=== PATIENT | male | born 1955 | race Hispanic/Latino ===

== ENCOUNTER 2016-06-08 16:43 | Emergency (ER) | payer MEDICARE ==
[2016-06-08 17:24] LABS: Urine Drugs of Abuse Note Disclamer
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
[2016-06-08 17:41] LABS: Bilirubin,Urine NEG (Negative); Blood,Urine NEG (Negative); Ketones,Urine TR mg/dL (Negative); Leukocyte Esterase,Urine NEG (Negative); Mucus,Urine FEW /HPF; Nitrite,Urine NEG (Negative); Protein,Urine <15 mg/dL mg/dL (Negative)
[2016-06-08 17:51] LABS: Eosinophils % (Auto) 2.7 % (0.0-4.3); Hematocrit 45.9 % (35.5-45.6); Hemoglobin 15.6 gm/dl (11.8-15.2); Mean Corpuscular HGB Conc 34 % (32-34); Mean Corpuscular Hemoglobin 35 pg (28-32); Mean Corpuscular Volume 104 fl (84-94); Platelet Count 131 K/mm3 (140-440); Red Blood Count 4.44 M/mm3 (3.65-5.03); White Blood Count 6.5 K/mm3 (4.5-11.0)
[2016-06-08 18:08] LABS: Anion Gap 18 mmol/L; BUN/Creatinine Ratio 17.14; Blood Urea Nitrogen 12 mg/dL (9-20); Calcium 9.6 mg/dL (8.4-10.2); Carbon Dioxide 28 mmol/L (22-30); Chloride 97.7 mmol/L (98-107); Glucose 99 mg/dL (75-100); Potassium 4.3 mmol/L (3.6-5.0); Sodium 139 mmol/L (137-145)
[2016-06-09 11:21] VITALS: BP 128/74
== END 2016-06-09 11:27 | disposition home or self-care (01) ==
LOC: EEVIPCON 16:43 → ED 16:43
DX: F20.9 Schizophrenia, unspecified (principal); F17.200 Nicotine dependence, unspecified, uncomplicated
CPT/HCPCS: 36415; 80048; 80307; 81001; 85025; 99284; G0480; 80320

== ENCOUNTER 2016-10-01 21:05 | Emergency (ER) | payer MEDICARE ==
[2016-10-01] MEDS ORDERED: HALDOL IM ONE ×2 (21:32→22:33)
--- NOTE | 2016-10-01 21:32 | Emergency Department Report ---
ED Alcohol HPI - General Chief Complaint: Altered Mental Status Stated Complaint: ETOH Time Seen by Provider: 10/01/16 21:25 Source: EMS (verbal report received from EMS. ems notes not available at time of chart dictation), RN notes reviewed, old records reviewed Mode of arrival: Stretcher Limitations: Altered Mental Status, Physical Limitation - History of Present Illness Initial Comments: This is a male, aged approximately 61, whom I have evaluated in the past. The patient has a known history of alcohol abuse. He is brought to the hospital by EMS found down on the road, the uncertain mechanism, for uncertain duration of time. EMS reports that patient smells of alcohol, that the patient had an empty bottle of isopropyl alcohol. No further history is available at this time. MD Complaint: alcohol intoxication, alcohol withdrawal Last Drink: unknown Chronic Alcohol Use: Yes Previous Visits for Alcohol Intoxication?: Yes Associated Symptoms: other (as per history of present illness) Treatments Prior to Arrival: other (as per history of present illness) - Related Data Home Medications Medication Instructions Recorded Confirmed Last Taken No Known Home Medications [No 10/02/13 10/02/16 Unknown Reported Home Medications] Allergies Allergy/AdvReac Type Severity Reaction Status Date / Time No Known Allergies Allergy Verified 12/18/14 20:49 ED Review of Systems ROS: Stated complaint: ETOH Other details as noted in HPI Comment: Unobtainable due to pts medical conditions ED Past Medical Hx - Past Medical History Hx Psychiatric Treatment: Yes (ETOH, schziophrenia) - Surgical History Additional Surgical History: hip - Social History Smoking Status: Current Every Day Smoker Substance Use Type: Alcohol, Prescribed - Medications Home Medications: Home Medications Medication Instructions Recorded Confirmed Last Taken Type No Known Home Medications [No 10/02/13 10/02/16 Unknown History Reported Home Medications] ED Physical Exam - General Limitations: Altered Mental Status, Physical Limitation General appearance: appears intoxicated - Head Head exam: Present: atraumatic, normocephalic - Eye Eye exam: Present: normal appearance - ENT ENT exam: Present: mucous membranes dry - Neck Neck exam: Present: normal inspection, full ROM. Absent: tenderness, meningismus - Respiratory Respiratory exam: Present: rhonchi (faint rhonchi noted in the left hemithorax) . Absent: respiratory distress, chest wall tenderness, accessory muscle use, decreased breath sounds, prolonged expiratory - Cardiovascular Cardiovascular Exam: Present: normal rhythm, tachycardia, normal heart sounds. Absent: systolic murmur, diastolic murmur, rubs, gallop - GI/Abdominal GI/Abdominal exam: Present: soft, normal bowel sounds. Absent: distended, tenderness, guarding, rebound, rigid, pulsatile mass - Rectal Rectal exam: Present: deferred - exam: Present: normal inspection External exam: Present: normal external exam - Extremities Exam Extremities exam: Present: normal inspection - Back Exam Back exam: Present: normal inspection, full ROM. Absent: tenderness, CVA tenderness (R), CVA tenderness (L), muscle spasm, paraspinal tenderness, vertebral tenderness - Neurological Exam Neurological exam: Present: altered, other (patient is making nonsensical sounds. He is moving 4 extremities spontaneously.) - Psychiatric Psychiatric exam: Present: normal affect, normal mood - Skin Skin exam: Present: warm, dry, intact, normal color. Absent: rash ED Course Vital Signs 10/01/16 10/01/16 10/01/16 21:27 21:36 21:40 Temperature 97.3 F L Pulse Rate 109 H 100 H Respiratory 14 13 Rate Blood Pressure 156/80 103/66 Blood Pressure 156/80 [Left] O2 Sat by Pulse 92 91 92 Oximetry 10/01/16 10/01/16 10/01/16 21:45 21:50 22:00 Temperature Pulse Rate 97 H Respiratory 10 L 16 Rate Blood Pressure 107/70 107/70 Blood Pressure 103/66 [Left] O2 Sat by Pulse 92 92 97 Oximetry 10/01/16 10/01/16 10/01/16 22:10 22:20 22:42 Temperature Pulse Rate 98 H Respiratory 11 L 17 Rate Blood Pressure 107/70 131/91 115/78 Blood Pressure [Left] O2 Sat by Pulse 98 97 Oximetry 10/01/16 10/01/16 10/01/16 22:50 22:53 23:00 Temperature Pulse Rate 99 H 99 H 105 H Respiratory 17 15 17 Rate Blood Pressure 92/51 92/51 Blood Pressure 115/75 [Left] O2 Sat by Pulse 95 96 97 Oximetry 10/01/16 10/01/16 10/01/16 23:10 23:20 23:25 Temperature Pulse Rate 106 H 96 H Respiratory 22 19 Rate Blood Pressure 92/51 135/78 Blood Pressure [Left] O2 Sat by Pulse 95 97 97 Oximetry 10/01/16 10/01/16 10/01/16 23:30 23:40 23:50 Temperature Pulse Rate 96 H 100 H 102 H Respiratory 14 10 L 19 Rate Blood Pressure 135/98 135/98 114/74 Blood Pressure [Left] O2 Sat by Pulse 95 97 97 Oximetry 10/01/16 10/02/16 10/02/16 23:58 00:00 00:10 Temperature Pulse Rate 98 H 95 H 95 H Respiratory 13 12 16 Rate Blood Pressure 114/74 134/84 134/84 Blood Pressure [Left] O2 Sat by Pulse 96 94 97 Oximetry 10/02/16 10/02/16 10/02/16 00:20 00:30 00:35 Temperature Pulse Rate 100 H 103 H 102 H Respiratory 20 19 18 Rate Blood Pressure 132/92 146/95 Blood Pressure 132/92 [Left] O2 Sat by Pulse 97 95 Oximetry 10/02/16 10/02/16 10/02/16 00:40 00:50 01:00 Temperature Pulse Rate 103 H 95 H 105 H Respiratory 18 13 21 Rate Blood Pressure 146/95 146/94 151/88 Blood Pressure [Left] O2 Sat by Pulse 97 97 96 Oximetry 10/02/16 10/02/16 10/02/16 01:10 01:20 01:30 Temperature Pulse Rate 97 H 96 H 96 H Respiratory 18 14 14 Rate Blood Pressure 151/88 151/88 134/84 Blood Pressure [Left] O2 Sat by Pulse 97 97 94 Oximetry 10/02/16 10/02/16 10/02/16 01:40 01:50 02:00 Temperature Pulse Rate 99 H 107 H 101 H Respiratory 14 17 11 L Rate Blood Pressure 134/84 124/80 134/87 Blood Pressure [Left] O2 Sat by Pulse 98 97 100 Oximetry 10/02/16 10/02/16 10/02/16 02:10 02:20 02:30 Temperature Pulse Rate 100 H 101 H 100 H Respiratory 22 22 13 Rate Blood Pressure 134/87 125/82 123/73 Blood Pressure [Left] O2 Sat by Pulse 93 91 96 Oximetry 10/02/16 10/02/16 10/02/16 02:40 02:50 03:00 Temperature Pulse Rate 101 H 95 H 94 H Respiratory 16 14 16 Rate Blood Pressure 125/82 125/81 133/84 Blood Pressure [Left] O2 Sat by Pulse 90 89 87 Oximetry 10/02/16 10/02/16 10/02/16 03:10 03:20 03:30 Temperature Pulse Rate 97 H 99 H 99 H Respiratory 13 10 L 15 Rate Blood Pressure 133/84 125/80 124/86 Blood Pressure [Left] O2 Sat by Pulse 90 91 91 Oximetry 10/02/16 10/02/16 10/02/16 03:40 03:50 04:00 Temperature Pulse Rate 101 H 100 H 96 H Respiratory 12 14 14 Rate Blood Pressure 124/86 129/76 127/83 Blood Pressure [Left] O2 Sat by Pulse 89 89 91 Oximetry 10/02/16 10/02/16 10/02/16 04:10 04:20 04:30 Temperature Pulse Rate 102 H 100 H 98 H Respiratory 13 15 13 Rate Blood Pressure 124/86 135/73 125/76 Blood Pressure [Left] O2 Sat by Pulse 93 92 92 Oximetry 10/02/16 10/02/16 10/02/16 04:40 04:50 05:03 Temperature Pulse Rate 96 H 105 H 100 H Respiratory 16 12 Rate Blood Pressure 125/76 125/76 Blood Pressure [Left] O2 Sat by Pulse 90 94 Oximetry - Reevaluation(s) Reevaluation #1: 10/01/16 21:43 Differential diagnosis: Intracranial injury, cervical spine injury, alcohol intoxication (ethanol versus methanol versus isopropyl versus other), electrolyte derangement, dehydration,, aspiration pneumonia versus pneumonitis Assessment and plan: 61-year-old male who is intoxicated, found down, with a bottle of isopropyl alcohol. Uncertain if this is recreational or suicidal in nature. The patient requires 1013. We will obtain CT scan of the brain and cervical spine. Cervical collar is ordered. Because the patient is intoxicated , he is a danger to himself and other patients, he is not responding to verbal de-escalation techniques, or show of force. Therefore, for his safety and for staff safety, he required medication with Haldol, and soft restraints. Hospital policies for monitoring have been followed. The case is discussed with Saida at the [facility], who recommends baseline laboratory studies, EKG, and call back once the patient's laboratory studies have resulted. Reevaluation #2: 10/02/16 00:39 Laboratory studies reviewed. Ethanol level is elevated. No anion gap is noted. CT scan of the brain and cervical spine are negative. X-ray of the chest is negative. Lactic acid is normal. Case is rediscussed with the [facility], they recommend symptomatic and supportive care, no specific antidote or other intervention at this time. Serum osmolality is most likely secondary to alcohol. Reevaluation #3: 10/02/16 05:00 position still intoxicated. Repeat blood alcohol level was drawn. CT scan reads are appreciated, clinically don't think the patient has a dislocated jaw. Reevaluation #4: 10/02/16 05:51 No medical contraindication to psychiatric admission/evaluation/consultation at this time. Crisis is paged. ED Medical Decision Making - Lab Data Result diagrams: 10/01/16 21:19 10/01/16 21:19 Vital Signs 10/01/16 21:27 Temperature 97.3 F L Pulse Rate 109 H Respiratory 14 Rate Blood Pressure 156/80 Blood Pressure 156/80 [Left] O2 Sat by Pulse 92 Oximetry - EKG Data -: EKG Interpreted by Me EKG shows normal: sinus rhythm, axis, intervals, QRS complexes Rate: normal - Radiology Data Radiology results: report reviewed, image reviewed interpreted by me: X-ray of the chest is hyperinflated, no acute disease, chronic lung markings are noted. Noncontrast CT scan of the brain and cervical spine are negative Critical care attestation.: If time is entered above; I have spent that time in minutes in the direct care of this critically ill patient, excluding procedure time. ED Disposition Clinical Impression: Alcohol dependence Disposition: [id number]/TX-[id number] PSY HOSP/PSY UNIT Is pt being admited?: No Does the pt Need Aspirin: No Condition: Stable Referrals: PRIMARY CARE, [Primary Care Provider] - 3-5 Days
[2016-10-01] MEDS ORDERED: HALDOL ONE (21:33)
[2016-10-01] MEDS ORDERED: GEODON IM ONE (22:14)
[2016-10-01 22:18] LABS: Hematocrit 48.6 % (35.5-45.6); Hemoglobin 16.5 gm/dl (11.8-15.2); Mean Corpuscular HGB Conc 34 % (32-34); Mean Corpuscular Hemoglobin 36 pg (28-32); Mean Corpuscular Volume 107 fl (84-94); Red Blood Count 4.53 M/mm3 (3.65-5.03); Red Cell Distribution Width 14.3 % (13.2-15.2); White Blood Count 7.5 K/mm3 (4.5-11.0)
[2016-10-01 22:19] LABS: Platelet Count 136 K/mm3 (140-440)
[2016-10-01 22:41] LABS: Urine Drugs of Abuse Note Disclamer
[2016-10-01 22:41] LABS: BUN/Creatinine Ratio 18.33; Blood Urea Nitrogen 11 mg/dL (9-20); Calcium 8.9 mg/dL (8.4-10.2); Carbon Dioxide 27 mmol/L (22-30); Glucose 119 mg/dL (75-100)
[2016-10-01 22:42] LABS: Anion Gap 20 mmol/L; Chloride 95.2 mmol/L (98-107); Potassium 4.7 mmol/L (3.6-5.0); Sodium 137 mmol/L (137-145)
[2016-10-01 22:53] LABS: Bilirubin,Urine NEG (Negative); Blood,Urine NEG (Negative); Ketones,Urine NEG (Negative); Leukocyte Esterase,Urine NEG (Negative); Nitrite,Urine NEG (Negative); Protein,Urine <15 mg/dL mg/dL (Negative); Urobilinogen,Urine < 2.0 mg/dL (<2.0)
--- NOTE | 2016-10-01 23:04 | Cat Scan Report ---
FINAL REPORT EXAM: CT CERVICAL SPINE WO CON HISTORY: unwitnessed fall TECHNIQUE: Spiral CT scanning of the cervical spine, with axial images and multiplanar reformations. PRIORS: None. FINDINGS: Mild levoconvex curvature may be positional versus soft tissue spasm. Multilevel degenerative disc disease and spondylosis. Right mandibular condyle perched on articular eminence. No acute compression deformity or gross malalignment of cervical vertebral bodies. No acute fracture identified. No acute, osseous central spinal canal encroachment. Paraspinal soft tissues grossly unremarkable. Diffuse emphysematous change in the visualized upper lungs. IMPRESSION: 1. No acute compression deformity or apparent fracture in the cervical spine. 2. Degenerative spondylosis. 3. Anterior subluxation or dislocation of right TMJ. Correlate clinically.
--- NOTE | 2016-10-01 23:09 | Cat Scan Report ---
FINAL REPORT EXAM: CT HEAD/BRAIN WO CON HISTORY: unwitnessed fall TECHNIQUE: Noncontrast CT axial images of the brain. PRIORS: 12 October 2015. FINDINGS: No parenchymal mass, mass effect, hemorrhage, midline shift or hydrocephalus. No evidence of acute cortical infarct. No abnormal, extra-axial fluid or air collection. Very mild, patchy low density in the periventricular and subcortical white matter is nonspecific, but may relate to chronic small vessel ischemic change. Osseous calvarium grossly intact. Right mandibular condyle located anterior to the mandibular fossa. IMPRESSION: 1. No acute intracranial findings. 2. Anterior subluxation or dislocation of right TMJ.
[2016-10-02] MEDS ORDERED: VITAMIN B-1 100 MG, FOLVITE 1 MG, INFUVITE 10 ML in NACL 0.9% 1000 ML 1,000 ML IV ONE (00:39)
[2016-10-02] MEDS ORDERED: ATIVAN IM PRN (05:52)
--- NOTE | 2016-10-02 09:53 | XRay Report ---
AP CHEST: HISTORY: Cough, congestion The lungs are mildly hyperinflated which is unchanged since 12/23/14. No evidence for pneumonia, pleural effusion or pneumothorax. Heart size is within normal limits. IMPRESSION: Hyperinflated lungs suggesting mild emphysema. No acute process.
[2016-10-02 13:09] LABS: Anion Gap 16 mmol/L; BUN/Creatinine Ratio 18.33; Blood Urea Nitrogen 11 mg/dL (9-20); Calcium 9.3 mg/dL (8.4-10.2); Carbon Dioxide 30 mmol/L (22-30); Chloride 97.6 mmol/L (98-107); Creatine Kinase 1177 units/L (55-170); Glucose 115 mg/dL (75-100); Potassium 4.8 mmol/L (3.6-5.0); Sodium 139 mmol/L (137-145)
--- NOTE | 2016-10-02 13:12 | Consultation ---
History of Present Illness - Reason for Consult Consult date: 10/02/16 Reason for consult: EtOH intoxication Medications and Allergies Allergies Allergy/AdvReac Type Severity Reaction Status Date / Time No Known Allergies Allergy Verified 12/18/14 20:49 Home Medications Medication Instructions Recorded Confirmed Last Taken Type No Known Home Medications [No 10/02/13 10/02/16 Unknown History Reported Home Medications] Active Meds: Active Medications Lorazepam (Ativan) 2 mg IM Q4HR PRN PRN Reason: Agitation Mental Status Exam - Vital signs Last Vital Signs Temp 97.3 F L 10/01/16 21:27 Pulse 102 H 10/02/16 06:10 Resp 15 10/02/16 06:10 BP 125/76 10/02/16 06:10 Pulse Ox 94 10/02/16 06:00 Results Result Diagrams: 10/01/16 21:19 10/01/16 21:19 Abnormal lab results 10/01/16 10/01/16 10/01/16 Range/Units 21:19 21:19 21:19 Hgb (11.8-15.2) gm/dl Hct (35.5-45.6) % MCV (84-94) fl MCH (28-32) pg Plt Count (140-440) K/mm3 Chloride 95.2 L (98-107) mmol/L Creatinine 0.6 L (0.8-1.5) mg/dL Glucose 119 H (75-100) mg/dL Ur Specific Blodgett (1.003-1.030) Salicylates < 0.3 L (2.8-20.0) mg/dL Plasma/Serum Alcohol 0.44 H (0-0.07) gm% 10/01/16 10/01/16 10/02/16 Range/Units 21:19 22:33 04:59 Hgb 16.5 H (11.8-15.2) gm/dl Hct 48.6 H (35.5-45.6) % MCV 107 H (84-94) fl MCH 36 H (28-32) pg Plt Count 136 L (140-440) K/mm3 Chloride (98-107) mmol/L Creatinine (0.8-1.5) mg/dL Glucose (75-100) mg/dL Ur Specific Bl[place]gett 1.002 L (1.003-1.030) Salicylates (2.8-20.0) mg/dL Plasma/Serum Alcohol 0.24 H (0-0.07) gm% All other labs normal. Assessment and Plan Assessment and plan: CHIEF COMPLAINT IN PATIENTS WORDS: HISTORY OF PRESENT ILLNESS REQUIRING ADMISSION TO INPATIENT LEVEL OF CARE: (Describe the onset of Illness, Intensity of Symptoms, and Circumstances Leading to Admission) This is a 61 year-old undomiciled male who reports a formal PPH alcohol abuse now presenting due to recent intoxication on some form of alcohol. Per review of vitals patient's sons are mostly stable with some periodic tachycardia noted. Initial blood alcohol level was 0.44 and last alcohol level this morning was 0.24. On clinical examination, patient was somewhat uncooperative and a poor historian. Patient did note that he has daily alcohol use but only noted several beers a day. Patient notes that he is on disability and currently homeless. Patient drinks alcohol daily and has previously gone several days and up to a week without alcohol consumption and no adverse sequelae consistent with DT. Patient does note that he starts getting cravings to drink alcohol when he is abstinent over 48 hours. PSYCHIATRIC REVIEW OF SYSTEMS: Substance: The alcohol use daily Depression: Low sad mood Sharon: denies labile moods, no flight of ideas, not impulsive Psychosis: no AVH. No paranoia/grandiosity/erotomania Anxiety/ OCD/ PTSD: denies somatic symptoms, flashbacks, nightmares, avoidance, panic attacks Suicidality: denies SI Other Self-Injurious Behavior: none currently, no SIB noted recently Violent/ Aggressive Behavior: none noted CURRENT MEDICATIONS: ( Psychiatric and Non-psychiatric ) None ALLERGIES: NKDA PAST PSYCHIATRIC HISTORY: ( Prior Treatment, Precipitating Factors, Diagnosis, and Course of Treatment ) Inpatient: None noted Outpatient: None noted Prior Suicide Attempts: denies Prior Self-Injurious Behaviors: denies PAST PSYCHIATRIC MEDICATION TRIALS: Denies MEDICAL HISTORY: (Chronic and Acute Illnesses, Current Medical Treatment, Recent Hospitalizations) Denies HISTORY OF TRAUMA/ABUSE: Patient denies on clinical examination DRUG / ALCOHOL ABUSE HISTORY: As above Detoxification / Withdrawal: Mild elevation in heart rate SOCIAL HISTORY: (Educational Level, Employment, Support System, Interpersonal Relationships) Poor social supports, chronic alcohol use, disrupted interpersonal relationships , homelessness FAMILY HISTORY: Psychiatric/Substance Abuse MENTAL STATUS EXAM: General Appearance: casually dressed, in acute distress Sensorium/Consciousness: alert and responding to external stimuli Eye Contact: limited Attitude / Behavior: cooperative, but guarded Psychomotor & Musculoskeletal Activity: WNL Mood: Sad Affect: constricted Speech / Language: normal Thought Processes: organized, logical, linear Thought Content: no SI, no HI Perception: no AVH Orientation: person, place, time and situation Judgment What would you do if you smelled smoke in a crowded movie theater?: poor/impulsive Insight: poor Intelligence Vocabulary, general fund of knowledge, educational level : Average Capacity of ADLs: Independent STRENGTHS: Motivated for treatment PSYCHOSOCIAL AND ENVIRONMENTAL STRESSORS: Chronic alcohol use, poor social supports ADMITTING DIAGNOSES Psychiatric: Alcohol abuse versus dependence Evidence for the following: Medical: n/a INITIAL PLAN OF CARE AND TREATMENT GOALS: Continue supportive care and observation until patient's BAL normalizes Refer patient to rehabilitation program when patient's BAL has normalized recommend naltrexone 50 mg daily and Antabuse 250 mg daily, but they are not on formulary and patient will need to obtain them as an outpatient Patient was informed about the risks and benefits of treatment
[2016-10-02 19:30] VITALS: BP 131/85
[2016-10-02 22:56] LABS: Bilirubin,Urine NEG (Negative); Blood,Urine SM (Negative); Ketones,Urine TR mg/dL (Negative); Leukocyte Esterase,Urine TR (Negative); Mucus,Urine FEW /HPF; Nitrite,Urine NEG (Negative)
--- NOTE | 2016-10-02 23:59 | Event Note ---
Date: 10/02/16 The patient is reexamined by me. He is not homicidal. He is not suicidal. He is alert and oriented 3. He has a GCS of 15, with an NIH score of 0. He is clinically sober at this time. His creatinine kinase has decreased appropriately, and he clinically does not have a jaw dislocation. Given this, I don't believe the patient requires 1013, and I discontinued it. He is seen in consultation with Mr. Eduardo Orta of the crisis team, who independently agrees. The patient is not especially motivated to pursue detox, therefore I will not prescribe Antabuse or naltrexone. He does have poor dentition, he will be started on chlorhexidine, when necessary Librium, and instructed to follow up with outpatient mental health, outpatient dentist. I have also rediscussed the case with the [place] [facility], and discussed the case with [facility]. The [facility] independently agrees with the patient is suitable for discharge at this time, and they have no further recommendations. The patient is counseled to discontinue alcohol consumption. Vital Signs 10/01/16 10/01/16 10/01/16 21:27 21:36 21:40 Temperature 97.3 F L Pulse Rate 109 H 100 H Respiratory 14 13 Rate Blood Pressure 156/80 103/66 Blood Pressure 156/80 [Left] O2 Sat by Pulse 92 91 92 Oximetry 10/01/16 10/01/16 10/01/16 21:45 21:50 22:00 Temperature Pulse Rate 97 H Respiratory 10 L 16 Rate Blood Pressure 107/70 107/70 Blood Pressure 103/66 [Left] O2 Sat by Pulse 92 92 97 Oximetry 10/01/16 10/01/16 10/01/16 22:10 22:20 22:42 Temperature Pulse Rate 98 H Respiratory 11 L 17 Rate Blood Pressure 107/70 131/91 115/78 Blood Pressure [Left] O2 Sat by Pulse 98 97 Oximetry 10/01/16 10/01/16 10/01/16 22:50 22:53 23:00 Temperature Pulse Rate 99 H 99 H 105 H Respiratory 17 15 17 Rate Blood Pressure 92/51 92/51 Blood Pressure 115/75 [Left] O2 Sat by Pulse 95 96 97 Oximetry 10/01/16 10/01/16 10/01/16 23:10 23:20 23:25 Temperature Pulse Rate 106 H 96 H Respiratory 22 19 Rate Blood Pressure 92/51 135/78 Blood Pressure [Left] O2 Sat by Pulse 95 97 97 Oximetry 10/01/16 10/01/16 10/01/16 23:30 23:40 23:50 Temperature Pulse Rate 96 H 100 H 102 H Respiratory 14 10 L 19 Rate Blood Pressure 135/98 135/98 114/74 Blood Pressure [Left] O2 Sat by Pulse 95 97 97 Oximetry 10/01/16 10/02/16 10/02/16 23:58 00:00 00:10 Temperature Pulse Rate 98 H 95 H 95 H Respiratory 13 12 16 Rate Blood Pressure 114/74 134/84 134/84 Blood Pressure [Left] O2 Sat by Pulse 96 94 97 Oximetry 10/02/16 10/02/16 10/02/16 00:20 00:30 00:35 Temperature Pulse Rate 100 H 103 H 102 H Respiratory 20 19 18 Rate Blood Pressure 132/92 146/95 Blood Pressure 132/92 [Left] O2 Sat by Pulse 97 95 Oximetry 10/02/16 10/02/16 10/02/16 00:40 00:50 01:00 Temperature Pulse Rate 103 H 95 H 105 H Respiratory 18 13 21 Rate Blood Pressure 146/95 146/94 151/88 Blood Pressure [Left] O2 Sat by Pulse 97 97 96 Oximetry 10/02/16 10/02/16 10/02/16 01:10 01:20 01:30 Temperature Pulse Rate 97 H 96 H 96 H Respiratory 18 14 14 Rate Blood Pressure 151/88 151/88 134/84 Blood Pressure [Left] O2 Sat by Pulse 97 97 94 Oximetry 10/02/16 10/02/16 10/02/16 01:40 01:50 02:00 Temperature Pulse Rate 99 H 107 H 101 H Respiratory 14 17 11 L Rate Blood Pressure 134/84 124/80 134/87 Blood Pressure [Left] O2 Sat by Pulse 98 97 100 Oximetry 10/02/16 10/02/16 10/02/16 02:10 02:20 02:30 Temperature Pulse Rate 100 H 101 H 100 H Respiratory 22 22 13 Rate Blood Pressure 134/87 125/82 123/73 Blood Pressure [Left] O2 Sat by Pulse 93 91 96 Oximetry 10/02/16 10/02/16 10/02/16 02:40 02:50 03:00 Temperature Pulse Rate 101 H 95 H 94 H Respiratory 16 14 16 Rate Blood Pressure 125/82 125/81 133/84 Blood Pressure [Left] O2 Sat by Pulse 90 89 87 Oximetry 10/02/16 10/02/16 10/02/16 03:10 03:20 03:30 Temperature Pulse Rate 97 H 99 H 99 H Respiratory 13 10 L 15 Rate Blood Pressure 133/84 125/80 124/86 Blood Pressure [Left] O2 Sat by Pulse 90 91 91 Oximetry 10/02/16 10/02/16 10/02/16 03:40 03:50 04:00 Temperature Pulse Rate 101 H 100 H 96 H Respiratory 12 14 14 Rate Blood Pressure 124/86 129/76 127/83 Blood Pressure [Left] O2 Sat by Pulse 89 89 91 Oximetry 10/02/16 10/02/16 10/02/16 04:10 04:20 04:30 Temperature Pulse Rate 102 H 100 H 98 H Respiratory 13 15 13 Rate Blood Pressure 124/86 135/73 125/76 Blood Pressure [Left] O2 Sat by Pulse 93 92 92 Oximetry 10/02/16 10/02/16 10/02/16 04:40 04:50 05:00 Temperature Pulse Rate 96 H 105 H 104 H Respiratory 16 12 13 Rate Blood Pressure 125/76 125/76 125/76 Blood Pressure [Left] O2 Sat by Pulse 90 94 93 Oximetry 10/02/16 10/02/16 10/02/16 05:03 05:10 05:20 Temperature Pulse Rate 100 H 94 H 96 H Respiratory 13 10 L Rate Blood Pressure 125/76 125/76 Blood Pressure [Left] O2 Sat by Pulse 93 92 Oximetry 10/02/16 10/02/16 10/02/16 05:30 05:40 05:50 Temperature Pulse Rate 95 H 103 H 97 H Respiratory 15 13 16 Rate Blood Pressure 125/76 125/76 125/76 Blood Pressure [Left] O2 Sat by Pulse 93 91 90 Oximetry 10/02/16 10/02/16 10/02/16 06:00 06:10 19:20 Temperature Pulse Rate 105 H 102 H Respiratory 12 15 Rate Blood Pressure 125/76 125/76 131/85 Blood Pressure [Left] O2 Sat by Pulse 94 Oximetry Lab Results 10/01/16 10/01/16 10/01/16 Range/Units 21:19 21:19 21:19 WBC (4.5-11.0) K/mm3 RBC (3.65-5.03) M/mm3 Hgb (11.8-15.2) gm/dl Hct (35.5-45.6) % MCV (84-94) fl MCH (28-32) pg MCHC (32-34) % RDW (13.2-15.2) % Plt Count (140-440) K/mm3 Sodium 137 (137-145) mmol/L Potassium 4.7 (3.6-5.0) mmol/L Chloride 95.2 L (98-107) mmol/L Carbon Dioxide 27 (22-30) mmol/L Anion Gap 20 mmol/L BUN 11 (9-20) mg/dL Creatinine 0.6 L (0.8-1.5) mg/dL Estimated GFR > 60 ml/min BUN/Creatinine Ratio 18.33 % Glucose 119 H (75-100) mg/dL Osmolality Mosm/kg Lactic Acid (0.7-2.0) mmol/L Calcium 8.9 (8.4-10.2) mg/dL Magnesium 2.00 (1.7-2.3) mg/dL Ammonia (25-60) umol/L Total Creatine Kinase 149 (55-170) units/L Urine Color (Yellow) Urine Turbidity (Clear) Urine pH (5.0-7.0) Ur Specific [place] (1.003-1.030) Urine Protein (Negative) mg/dL Urine Glucose (UA) (Negative) mg/dL Urine Ketones (Negative) mg/dL Urine Blood (Negative) Urine Nitrite (Negative) Urine Bilirubin (Negative) Urine Urobilinogen (<2.0) mg/dL Ur Leukocyte Esterase (Negative) Urine WBC (Auto) (0.0-6.0) /HPF Urine RBC (Auto) (0.0-6.0) /HPF U Epithel Cells (Auto) (0-13.0) /HPF Urine Mucus /HPF Urine Osmolality Mosm/kg Salicylates (2.8-20.0) mg/dL Urine Opiates Screen Urine Methadone Screen Acetaminophen (10.0-30.0) ug/mL Ur Barbiturates Screen Ur Phencyclidine Scrn Ur Amphetamines Screen U Benzodiazepines Scrn Urine Cocaine Screen U Marijuana (THC) Screen Drugs of Abuse Note Plasma/Serum Alcohol 0.44 H (0-0.07) gm% 10/01/16 10/01/16 10/01/16 Range/Units 21:19 21:19 21:19 WBC 7.5 (4.5-11.0) K/mm3 RBC 4.53 (3.65-5.03) M/mm3 Hgb 16.5 H (11.8-15.2) gm/dl Hct 48.6 H (35.5-45.6) % MCV 107 H (84-94) fl MCH 36 H (28-32) pg MCHC 34 (32-34) % RDW 14.3 (13.2-15.2) % Plt Count 136 L (140-440) K/mm3 Sodium (137-145) mmol/L Potassium (3.6-5.0) mmol/L Chloride (98-107) mmol/L Carbon Dioxide (22-30) mmol/L Anion Gap mmol/L BUN (9-20) mg/dL Creatinine (0.8-1.5) mg/dL Estimated GFR ml/min BUN/Creatinine Ratio % Glucose (75-100) mg/dL Osmolality Mosm/kg Lactic Acid (0.7-2.0) mmol/L Calcium (8.4-10.2) mg/dL Magnesium (1.7-2.3) mg/dL Ammonia (25-60) umol/L Total Creatine Kinase (55-170) units/L Urine Color (Yellow) Urine Turbidity (Clear) Urine pH (5.0-7.0) Ur Specific [place] (1.003-1.030) Urine Protein (Negative) mg/dL Urine Glucose (UA) (Negative) mg/dL Urine Ketones (Negative) mg/dL Urine Blood (Negative) Urine Nitrite (Negative) Urine Bilirubin (Negative) Urine Urobilinogen (<2.0) mg/dL Ur Leukocyte Esterase (Negative) Urine WBC (Auto) (0.0-6.0) /HPF Urine RBC (Auto) (0.0-6.0) /HPF U Epithel Cells (Auto) (0-13.0) /HPF Urine Mucus /HPF Urine Osmolality Mosm/kg Salicylates < 0.3 L (2.8-20.0) mg/dL Urine Opiates Screen Urine Methadone Screen Acetaminophen < 15.0 (10.0-30.0) ug/mL Ur Barbiturates Screen Ur Phencyclidine Scrn Ur Amphetamines Screen U Benzodiazepines Scrn Urine Cocaine Screen U Marijuana (THC) Screen Drugs of Abuse Note Plasma/Serum Alcohol (0-0.07) gm% 10/01/16 10/01/16 10/01/16 Range/Units 21:19 22:01 22:01 WBC (4.5-11.0) K/mm3 RBC (3.65-5.03) M/mm3 Hgb (11.8-15.2) gm/dl Hct (35.5-45.6) % MCV (84-94) fl MCH (28-32) pg MCHC (32-34) % RDW (13.2-15.2) % Plt Count (140-440) K/mm3 Sodium (137-145) mmol/L Potassium (3.6-5.0) mmol/L Chloride (98-107) mmol/L Carbon Dioxide (22-30) mmol/L Anion Gap mmol/L BUN (9-20) mg/dL Creatinine (0.8-1.5) mg/dL Estimated GFR ml/min BUN/Creatinine Ratio % Glucose (75-100) mg/dL Osmolality 401 Mosm/kg Lactic Acid 1.50 (0.7-2.0) mmol/L Calcium (8.4-10.2) mg/dL Magnesium (1.7-2.3) mg/dL Ammonia 37.0 (25-60) umol/L Total Creatine Kinase (55-170) units/L Urine Color (Yellow) Urine Turbidity (Clear) Urine pH (5.0-7.0) Ur Specific [place] (1.003-1.030) Urine Protein (Negative) mg/dL Urine Glucose (UA) (Negative) mg/dL Urine Ketones (Negative) mg/dL Urine Blood (Negative) Urine Nitrite (Negative) Urine Bilirubin (Negative) Urine Urobilinogen (<2.0) mg/dL Ur Leukocyte Esterase (Negative) Urine WBC (Auto) (0.0-6.0) /HPF Urine RBC (Auto) (0.0-6.0) /HPF U Epithel Cells (Auto) (0-13.0) /HPF Urine Mucus /HPF Urine Osmolality Mosm/kg Salicylates (2.8-20.0) mg/dL Urine Opiates Screen Urine Methadone Screen Acetaminophen (10.0-30.0) ug/mL Ur Barbiturates Screen Ur Phencyclidine Scrn Ur Amphetamines Screen U Benzodiazepines Scrn Urine Cocaine Screen U Marijuana (THC) Screen Drugs of Abuse Note Plasma/Serum Alcohol (0-0.07) gm% 10/01/16 10/01/16 10/02/16 Range/Units 22:33 22:33 04:59 WBC (4.5-11.0) K/mm3 RBC (3.65-5.03) M/mm3 Hgb (11.8-15.2) gm/dl Hct (35.5-45.6) % MCV (84-94) fl MCH (28-32) pg MCHC (32-34) % RDW (13.2-15.2) % Plt Count (140-440) K/mm3 Sodium (137-145) mmol/L Potassium (3.6-5.0) mmol/L Chloride (98-107) mmol/L Carbon Dioxide (22-30) mmol/L Anion Gap mmol/L BUN (9-20) mg/dL Creatinine (0.8-1.5) mg/dL Estimated GFR ml/min BUN/Creatinine Ratio % Glucose (75-100) mg/dL Osmolality Mosm/kg Lactic Acid (0.7-2.0) mmol/L Calcium (8.4-10.2) mg/dL Magnesium (1.7-2.3) mg/dL Ammonia (25-60) umol/L Total Creatine Kinase (55-170) units/L Urine Color Colorless (Yellow) Urine Turbidity Clear (Clear) Urine pH 6.0 (5.0-7.0) Ur Specific [place] 1.002 L (1.003-1.030) Urine Protein <15 mg/dl (Negative) mg/dL Urine Glucose (UA) Neg (Negative) mg/dL Urine Ketones Neg (Negative) mg/dL Urine Blood Neg (Negative) Urine Nitrite Neg (Negative) Urine Bilirubin Neg (Negative) Urine Urobilinogen < 2.0 (<2.0) mg/dL Ur Leukocyte Esterase Neg (Negative) Urine WBC (Auto) 0.0 (0.0-6.0) /HPF Urine RBC (Auto) 0.0 (0.0-6.0) /HPF U Epithel Cells (Auto) (0-13.0) /HPF Urine Mucus /HPF Urine Osmolality 197 Mosm/kg Salicylates (2.8-20.0) mg/dL Urine Opiates Screen Presumptive negative Urine Methadone Screen Presumptive negative Acetaminophen (10.0-30.0) ug/mL Ur Barbiturates Screen Presumptive negative Ur Phencyclidine Scrn Presumptive negative Ur Amphetamines Screen Presumptive negative U Benzodiazepines Scrn Presumptive negative Urine Cocaine Screen Presumptive negative U Marijuana (THC) Screen Presumptive negative Drugs of Abuse Note Disclamer Plasma/Serum Alcohol 0.24 H (0-0.07) gm% 10/02/16 10/02/16 10/02/16 Range/Units 12:35 12:35 22:11 WBC (4.5-11.0) K/mm3 RBC (3.65-5.03) M/mm3 Hgb (11.8-15.2) gm/dl Hct (35.5-45.6) % MCV (84-94) fl MCH (28-32) pg MCHC (32-34) % RDW (13.2-15.2) % Plt Count (140-440) K/mm3 Sodium 139 (137-145) mmol/L Potassium 4.8 (3.6-5.0) mmol/L Chloride 97.6 L (98-107) mmol/L Carbon Dioxide 30 (22-30) mmol/L Anion Gap 16 mmol/L BUN 11 (9-20) mg/dL Creatinine 0.6 L (0.8-1.5) mg/dL Estimated GFR > 60 ml/min BUN/Creatinine Ratio 18.33 % Glucose 115 H (75-100) mg/dL Osmolality Mosm/kg Lactic Acid (0.7-2.0) mmol/L Calcium 9.3 (8.4-10.2) mg/dL Magnesium (1.7-2.3) mg/dL Ammonia (25-60) umol/L Total Creatine Kinase 1177 H 998 H (55-170) units/L Urine Color (Yellow) Urine Turbidity (Clear) Urine pH (5.0-7.0) Ur Specific [place] (1.003-1.030) Urine Protein (Negative) mg/dL Urine Glucose (UA) (Negative) mg/dL Urine Ketones (Negative) mg/dL Urine Blood (Negative) Urine Nitrite (Negative) Urine Bilirubin (Negative) Urine Urobilinogen (<2.0) mg/dL Ur Leukocyte Esterase (Negative) Urine WBC (Auto) (0.0-6.0) /HPF Urine RBC (Auto) (0.0-6.0) /HPF U Epithel Cells (Auto) (0-13.0) /HPF Urine Mucus /HPF Urine Osmolality Mosm/kg Salicylates (2.8-20.0) mg/dL Urine Opiates Screen Urine Methadone Screen Acetaminophen (10.0-30.0) ug/mL Ur Barbiturates Screen Ur Phencyclidine Scrn Ur Amphetamines Screen U Benzodiazepines Scrn Urine Cocaine Screen U Marijuana (THC) Screen Drugs of Abuse Note Plasma/Serum Alcohol < 0.01 (0-0.07) gm% 10/02/16 Range/Units 22:30 WBC (4.5-11.0) K/mm3 RBC (3.65-5.03) M/mm3 Hgb (11.8-15.2) gm/dl Hct (35.5-45.6) % MCV (84-94) fl MCH (28-32) pg MCHC (32-34) % RDW (13.2-15.2) % Plt Count (140-440) K/mm3 Sodium (137-145) mmol/L Potassium (3.6-5.0) mmol/L Chloride (98-107) mmol/L Carbon Dioxide (22-30) mmol/L Anion Gap mmol/L BUN (9-20) mg/dL Creatinine (0.8-1.5) mg/dL Estimated GFR ml/min BUN/Creatinine Ratio % Glucose (75-100) mg/dL Osmolality Mosm/kg Lactic Acid (0.7-2.0) mmol/L Calcium (8.4-10.2) mg/dL Magnesium (1.7-2.3) mg/dL Ammonia (25-60) umol/L Total Creatine Kinase (55-170) units/L Urine Color Yellow (Yellow) Urine Turbidity Clear (Clear) Urine pH 6.0 (5.0-7.0) Ur Specific [place] 1.026 (1.003-1.030) Urine Protein 100 mg/dl (Negative) mg/dL Urine Glucose (UA) >=500 (Negative) mg/dL Urine Ketones Tr (Negative) mg/dL Urine Blood Sm (Negative) Urine Nitrite Neg (Negative) Urine Bilirubin Neg (Negative) Urine Urobilinogen 4.0 (<2.0) mg/dL Ur Leukocyte Esterase Tr (Negative) Urine WBC (Auto) 21.0 H (0.0-6.0) /HPF Urine RBC (Auto) 14.0 (0.0-6.0) /HPF U Epithel Cells (Auto) < 1.0 (0-13.0) /HPF Urine Mucus Few /HPF Urine Osmolality Mosm/kg Salicylates (2.8-20.0) mg/dL Urine Opiates Screen Urine Methadone Screen Acetaminophen (10.0-30.0) ug/mL Ur Barbiturates Screen Ur Phencyclidine Scrn Ur Amphetamines Screen U Benzodiazepines Scrn Urine Cocaine Screen U Marijuana (THC) Screen Drugs of Abuse Note Plasma/Serum Alcohol (0-0.07) gm%
== END 2016-10-03 00:41 | disposition home or self-care (01) ==
LOC: EEVIPCON 21:05 → ED 21:05
DX: F10.20 Alcohol dependence, uncomplicated (principal); F20.9 Schizophrenia, unspecified; F17.200 Nicotine dependence, unspecified, uncomplicated
CPT/HCPCS: 36415; 51701; 70450; 71010; 72125; 80048; 80307; 81001; 82140; 82550; 83735; 83930; 83935; 85027; 93005; 93010; 96365; 96366; 96372; 99285; G0480; J1630; J3411; J7030; 80320; J3486

== ENCOUNTER 2017-01-23 21:34 | Emergency (ER) | payer MEDICARE ==
[2017-01-23 22:05] LABS: Urine Drugs of Abuse Note Disclamer
[2017-01-23 22:14] LABS: Bilirubin,Urine NEG (Negative); Blood,Urine NEG (Negative); Ketones,Urine NEG (Negative); Leukocyte Esterase,Urine NEG (Negative); Nitrite,Urine NEG (Negative); Protein,Urine <15 mg/dL mg/dL (Negative); RBC,Urine < 1.0 /HPF (0.0-6.0); Urobilinogen,Urine < 2.0 mg/dL (<2.0); WBC,Urine < 1.0 /HPF (0.0-6.0)
[2017-01-23 22:35] LABS: Basophils % (Auto) 1.3 % (0.0-1.8); Eosinophils % (Auto) 2.5 % (0.0-4.3); Hematocrit 47.9 % (35.5-45.6); Hemoglobin 16.8 gm/dl (11.8-15.2); Mean Corpuscular HGB Conc 35 % (32-34); Mean Corpuscular Hemoglobin 37 pg (28-32); Mean Corpuscular Volume 105 fl (84-94); Platelet Count 144 K/mm3 (140-440); Red Blood Count 4.57 M/mm3 (3.65-5.03); Red Cell Distribution Width 14.3 % (13.2-15.2); White Blood Count 7.7 K/mm3 (4.5-11.0)
--- NOTE | 2017-01-23 23:11 | Cat Scan Report ---
FINAL REPORT PROCEDURE: CT CERVICAL SPINE WO CON TECHNIQUE: Computerized tomography of the cervical spine was performed from the skull base to T1 without contrast material. HISTORY: etoh found down COMPARISON: October 01, 2016 FINDINGS: Alignment is satisfactory. No fracture. Odontoid process is intact C1-2: No significant abnormality. C2-3: Disc space narrowing. Disc bulge and spurring. No canal stenosis or foraminal encroachment. C3-4: No significant abnormality. C4-5: Disc space narrowing. Disc bulge and spurring.. No canal stenosis or foraminal encroachment. C5-6: Disc space narrowing. Disc bulge and spurring. No canal stenosis. Uncovertebral spurring with foraminal narrowing. C6-7: Disc bulge and spurring. No canal stenosis. Uncovertebral spurring with foraminal narrowing. C7-T1: No significant abnormality. Other: Soft tissues are intact. Emphysematous changes at the lung apices. Atherosclerotic calcifications.. IMPRESSION: Cervical spondylosis. No fracture seen..
--- NOTE | 2017-01-23 23:17 | Cat Scan Report ---
FINAL REPORT PROCEDURE: CT HEAD/BRAIN WO CON TECHNIQUE: Computerized tomography of the head was performed without contrast material. HISTORY: etoh found down COMPARISON: October 01, 2016 and October 12, 2015 FINDINGS: Skull and scalp: Normal. No acute fracture. Chronic subluxation at the right temporomandibular joint. Paranasal sinuses: Normal. Ventricles and subarachnoid spaces: Normal. Cerebrum: No evidence of hemorrhage, acute infarction or mass. Mild atrophy with periventricular and deep white matter diminished densities consistent with microangiopathy. Cerebellum and brainstem: No evidence of hemorrhage, acute infarction or mass. Vasculature: Normal. Comments: Motion artifact. IMPRESSION: Involutional change with atrophy and microangiopathy. No hemorrhage.
[2017-01-23 23:20] LABS: Chloride TNR mmol/L (98-107); Potassium TNR mmol/L (3.6-5.0); Sodium TNR mmol/L (137-145)
[2017-01-23 23:21] LABS: Anion Gap TNR mmol/L; BUN/Creatinine Ratio TNR; Blood Urea Nitrogen TNR mg/dL (9-20); Carbon Dioxide TNR mmol/L (22-30); Glucose TNR mg/dL (75-100)
[2017-01-23 23:22] LABS: Alanine Aminotransferase TNR units/L (7-56); Bilirubin,Total TNR mg/dL (0.1-1.2); Calcium TNR mg/dL (8.4-10.2); Magnesium TNR mg/dL (1.7-2.3); Total Protein TNR g/dL (6.3-8.2)
[2017-01-23 23:23] LABS: Albumin TNR g/dL (3.9-5); Albumin/Globulin Ratio TNR %; Alkaline Phosphatase TNR units/L (35-129)
[2017-01-24] MEDS ORDERED: BOOSTRIX IM ONE (00:04)
[2017-01-24 00:56] LABS: Alanine Aminotransferase 31 units/L (7-56); Albumin 3.7 g/dL (3.9-5); Albumin/Globulin Ratio 1.3 %; Alkaline Phosphatase 84 units/L (35-129); Anion Gap 18 mmol/L; BUN/Creatinine Ratio 20; Blood Urea Nitrogen 8 mg/dL (9-20); Calcium 8.7 mg/dL (8.4-10.2); Carbon Dioxide 26 mmol/L (22-30); Chloride 94.3 mmol/L (98-107); Glucose 100 mg/dL (75-100); Potassium 3.7 mmol/L (3.6-5.0); Sodium 135 mmol/L (137-145); Total Protein 6.6 g/dL (6.3-8.2)
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
[2017-01-24 13:52] VITALS: BP 165/80
[2017-01-24] MEDS ORDERED: VITAMIN B-1 100 MG, FOLVITE 1 MG, INFUVITE 10 ML in NACL 0.9% 1000 ML 1,000 ML IV ONE (23:56)
== END 2017-01-24 14:34 | disposition home or self-care (01) ==
LOC: ED 21:34
DX: F10.129 Alcohol abuse with intoxication, unspecified (principal); S00.211A Abrasion of right eyelid and periocular area, initial encounter; F20.9 Schizophrenia, unspecified; F17.200 Nicotine dependence, unspecified, uncomplicated; X58.XXXA Exposure to other specified factors, initial encounter; Y93.89 Activity, other specified; Y99.8 Other external cause status; Y92.89 Other specified places as the place of occurrence of the external cause
CPT/HCPCS: 36415; 70450; 72125; 80053; 80307; 81001; 82140; 83735; 84443; 85025; 90471; 90715; 93005; 93010; 96365; 96366; 99285; G0480; J3411; J7030; 80320

== ENCOUNTER 2017-05-15 18:21 | Emergency (ER) | payer MEDICARE ==
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
--- NOTE | 2017-05-16 07:26 | XRay Report ---
FINAL REPORT EXAM: XR CHEST ROUTINE 2V HISTORY: cough TECHNIQUE: PA and lateral views of the chest were submitted. FINDINGS: The lungs are hyper inflated. There are no acute infiltrates or effusions. The lungs are not congested. The heart size is normal. The skeletal structures reveal multilevel disc degeneration in the thoracic spine IMPRESSION: COPD. No acute process in the chest.
[2017-05-16 08:09] VITALS: BP 135/96
[2017-05-16 10:41] LABS: Bilirubin,Urine SM (Negative); Blood,Urine NEG (Negative); Color,Urine Amber (Yellow); Mucus,Urine FEW /HPF; Nitrite,Urine NEG (Negative)
--- NOTE | 2017-05-16 10:47 | Consultation ---
History of Present Illness - Reason for Consult Consult date: 05/16/17 Reason for consult: Mental Health Evaluation Requesting physician: TAVO PAUL - Chief Complaint Chief complaint: "I'm here for what" - History of Present Psychiatric Illness 61 y.o. white male presenting to [facility] for back pain. Per the record, the patient stated that he was experiencing AH's. Today the patient is calm with a tangential thought process. He stated that the TV was talking to him. He stated that he was also hearing "special voices" that he could not make out. The patient had to be redirected several times to keep him on topic. He did state he was a patient at [facility] in the past. Per previous ER admissions, the patient was seen for ETOH several times at this hospital. No gestures of SI/HI' s. Medications and Allergies Allergies Allergy/AdvReac Type Severity Reaction Status Date / Time No Known Allergies Allergy Verified 12/18/14 20:49 Home Medications Medication Instructions Recorded Confirmed Last Taken Type Chlorhexidine Mouthwash [Peridex] 15 ml MM BID #1 bottle 10/03/16 Unknown Rx chlordiazePOXIDE [Librium] 25 mg PO Q8H PRN #15 capsule 10/03/16 Unknown Rx Past psychiatric history - Past Medical History Past Medical History: other (ETOH) Past Surgical History: Other (Unable to obtain) - past Psychiatric treatment and history psychiatric treatment history: Per the patient, "I have been to [facility]." Unable to obtain a fam psy hx. - Social History Social history: other (Homeless) Mental Status Exam - Vital signs Last Vital Signs Temp 98.1 F 05/16/17 08:07 Pulse 85 05/16/17 08:07 Resp 16 05/16/17 08:07 BP 135/96 05/16/17 08:07 Pulse Ox 98 05/16/17 08:07 - Exam Narrative exam: MSE: Appearance: calm Behavior: poor eye contact Speech: regular rate and tone Mood: "okay" Affect: flat Thought Process: tangential Thought Content: denies SI/HI's and VH's, disorganized, delusional Motor Activity: lying in bed Cognition: alert Insight: poor Judgment: poor Results Result Diagrams: 05/16/17 11:10 05/16/17 11:10 Abnormal lab results 01/29/18 01/30/18 Range/Units 22:01 10:05 Urine WBC (Auto) 9.0 H (0.0-6.0) /HPF Salicylates < 0.3 L (2.8-20.0) mg/dL All other labs normal. 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 Unspecified Psychosis. Today the patient is calm with a tangential thought process. Patient is experiencing ideas of reference. Alcohol serum 0.05. UDS negative. DDx: R/O Schizophrenia, R/O Bipolar DO Recommendation/Plan: Continue 1013 with placement to inpatient psy services. Start Zyprexa 5 mg PO HS for psychosis. Discussed possible metabolic side effects of Zyprexa with patient.
[2017-05-16 11:02] LABS: Amphetamine Screen,Urine PRESUMPTIVE NEGATIVE; Benzodiazepines Screen,Urine PRESUMPTIVE NEGATIVE; Cannabinoid Screen,Urine PRESUMPTIVE NEGATIVE; Cocaine Screen,Urine PRESUMPTIVE NEGATIVE; Ictotest,Urine Negative (Negative); Methadone Screen,Urine PRESUMPTIVE NEGATIVE; Opiate Screen,Urine PRESUMPTIVE NEGATIVE
[2017-05-16 11:30] LABS: Basophils # (Auto) 0.1 K/mm3 (0.0-0.1); Basophils % (Auto) 1.5 % (0.0-1.8); Eosinophils # (Auto) 0.1 K/mm3 (0.0-0.4); Eosinophils % (Auto) 2.4 % (0.0-4.3); Hematocrit 44.1 % (35.5-45.6); Hemoglobin 15.5 gm/dl (11.8-15.2); Lymphocytes % (Auto) 18.1 % (13.4-35.0); Mean Corpuscular HGB Conc 35 % (32-34); Mean Corpuscular Hemoglobin 38 pg (28-32); Mean Corpuscular Volume 107 fl (84-94); Monocytes # (Auto) 0.7 K/mm3 (0.0-0.8); Monocytes % (Auto) 12.3 % (0.0-7.3); Platelet Count 150 K/mm3 (140-440); Red Blood Count 4.14 M/mm3 (3.65-5.03); Red Cell Distribution Width 12.8 % (13.2-15.2)
[2017-05-16 12:11] LABS: BUN/Creatinine Ratio 36; Blood Urea Nitrogen 18 mg/dL (9-20); Calcium 9.2 mg/dL (8.4-10.2); Hemolysis Index 5
== END 2017-05-16 19:00 ==
LOC: ED 18:21 → EEVIPCON 18:21 → ED 05-16 19:00
DX: F20.9 Schizophrenia, unspecified (principal); M54.5 Low back pain; G89.29 Other chronic pain; S32.009D Unspecified fracture of unspecified lumbar vertebra, subsequent encounter for fracture with routine healing; X58.XXXD Exposure to other specified factors, subsequent encounter; F17.200 Nicotine dependence, unspecified, uncomplicated
CPT/HCPCS: 36415; 71046; 72100; 80048; 80307; 81001; 85025; 99285; G0480; 80320

== ENCOUNTER 2017-10-20 12:47 | Emergency (ER) | payer MEDICARE ==
[2017-10-20 12:57] VITALS: BP 134/80
[2017-10-20 13:35] LABS: Basophils # (Auto) 0.1 K/mm3 (0.0-0.1); Basophils % (Auto) 1.3 % (0.0-1.8); Eosinophils # (Auto) 0.1 K/mm3 (0.0-0.4); Eosinophils % (Auto) 1.2 % (0.0-4.3); Hematocrit 51.2 % (35.5-45.6); Hemoglobin 17.3 gm/dl (11.8-15.2); Lymphocytes # (Auto) 1.5 K/mm3 (1.2-5.4); Lymphocytes % (Auto) 29.7 % (13.4-35.0); Mean Corpuscular HGB Conc 34 % (32-34); Mean Corpuscular Hemoglobin 35 pg (28-32); Mean Corpuscular Volume 104 fl (84-94); Monocytes # (Auto) 0.5 K/mm3 (0.0-0.8); Platelet Count 123 K/mm3 (140-440); Red Blood Count 4.93 M/mm3 (3.65-5.03)
[2017-10-20 13:54] LABS: BUN/Creatinine Ratio 7; Blood Urea Nitrogen 4 mg/dL (9-20); Hemolysis Index 4
[2017-10-20] MEDS ORDERED: NACL 0.9% 1000 ML 2,000 ML IV ONE (20:34)
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
== END 2017-10-20 23:40 | disposition home or self-care (01) ==
LOC: ED 12:47
DX: F10.129 Alcohol abuse with intoxication, unspecified (principal); F20.9 Schizophrenia, unspecified; F17.200 Nicotine dependence, unspecified, uncomplicated; Z79.899 Other long term (current) drug therapy
CPT/HCPCS: 36415; 80048; 82962; 85025; 96360; 99284; G0480; J7030; 80320

== ENCOUNTER 2018-05-13 15:28 | Emergency (ER) | payer MEDICARE ==
[2018-05-13 15:46] VITALS: BP 145/81
[2018-05-13] MEDS ORDERED: CLEOCIN 900 MG/50 mL 900 MG/50 ML BAG IV ONE (16:45)
[2018-05-13 17:31] LABS: Basophils % (Auto) 0.4 % (0.0-1.8); Eosinophils # (Auto) 0.1 K/mm3 (0.0-0.4); Eosinophils % (Auto) 1.9 % (0.0-4.3); Hematocrit 43.8 % (35.5-45.6); Hemoglobin 14.9 gm/dl (11.8-15.2); Lymphocytes # (Auto) 1.3 K/mm3 (1.2-5.4); Lymphocytes % (Auto) 17.7 % (13.4-35.0); Mean Corpuscular HGB Conc 34 % (32-34); Mean Corpuscular Volume 106 fl (84-94); Monocytes # (Auto) 0.7 K/mm3 (0.0-0.8); Monocytes % (Auto) 10.1 % (0.0-7.3); Platelet Count 136 K/mm3 (140-440); Red Blood Count 4.12 M/mm3 (3.65-5.03); Red Cell Distribution Width 13.1 % (13.2-15.2)
[2018-05-13 17:48] LABS: BUN/Creatinine Ratio 18; Blood Urea Nitrogen 7 mg/dL (9-20); Calcium 8.9 mg/dL (8.4-10.2); Hemolysis Index 31
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
== END 2018-05-13 18:17 | disposition home or self-care (01) ==
LOC: ED 15:28
DX: L03.116 Cellulitis of left lower limb (principal); F20.9 Schizophrenia, unspecified; F17.200 Nicotine dependence, unspecified, uncomplicated; Z79.899 Other long term (current) drug therapy
CPT/HCPCS: 36415; 80048; 85025; 96365; 99283

== ENCOUNTER 2019-04-01 22:25 | Emergency (ER) | payer MEDICARE ==
[2019-04-01] MEDS ORDERED: SODIUM CHLORIDE 0.9% 1000 ML 1,000 ML IV ONE (22:59)
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
[2019-04-01 23:36] LABS: Basophils # (Auto) 0.1 K/mm3 (0.0-0.1); Eosinophils # (Auto) 0.2 K/mm3 (0.0-0.4); Eosinophils % (Auto) 3.4 % (0.0-4.3); Hematocrit 51.1 % (35.5-45.6); Hemoglobin 16.9 gm/dl (11.8-15.2); Lymphocytes # (Auto) 1.8 K/mm3 (1.2-5.4); Mean Corpuscular HGB Conc 33 % (32-34); Mean Corpuscular Volume 103 fl (84-94); Monocytes # (Auto) 0.5 K/mm3 (0.0-0.8); Monocytes % (Auto) 7.6 % (0.0-7.3); Platelet Count 132 K/mm3 (140-440); Red Blood Count 4.99 M/mm3 (3.65-5.03); Red Cell Distribution Width 13.3 % (13.2-15.2)
[2019-04-01 23:47] LABS: BUN/Creatinine Ratio 20; Blood Urea Nitrogen 10 mg/dL (9-20); Calcium 7.3 mg/dL (8.4-10.2); Hemolysis Index 12
--- NOTE | 2019-04-01 23:57 | Cat Scan Report ---
Head CT without intravenous contrast INDICATION: Closed head trauma tonight COMPARISON: None FINDINGS: The ventricles are normal in size and position. No hemorrhage or extra-axial fluid collecti on. No edema or mass effect. No focal infarct seen. Portions of the sinuses visualized are clear. No skull fracture identified. IMPRESSION: Negative head CT Automated exposure control was utilized to diminish radiation dose Signer Name: Garrison Duque MD Signed: 04/01/2019 11:53 PM Workstation Name: [id number]
[2019-04-02] MEDS ORDERED: SODIUM CHLORIDE 0.9% 1000 ML 1,000 ML IV ONE ×2 (00:06→01:22)
--- NOTE | 2019-04-02 00:08 | Cat Scan Report ---
CT of the cervical spine INDICATION: Neck pain following fall tonight FINDINGS: The vertebral body heights are intact with no compression fractures seen. There is slight t o moderate disc space narrowing throughout the cervical spine with areas of anterior and posterior sp urring. No subluxation is seen. No posterior element fracture or facet lock. There is mild facet arth ropathy. No epidural hematoma or soft tissue swelling. Odontoid and spinous processes are unremarkabl e. No acute abnormality. IMPRESSION: Moderate cervical spondylosis. No acute traumatic abnormality. All CT scans at this location are performed using CT dose reduction for ALARA by means of automated e xposure control Signer Name: Garrison Duque MD Signed: 04/02/2019 12:03 AM Workstation Name: [id number]
--- NOTE | 2019-04-02 00:58 | XRay Report ---
Lumbosacral spine, 2 views INDICATION: Back pain FINDINGS: The vertebral body heights are intact with no compression fractures seen. There is moderate to severe disc space narrowing throughout the lumbar spine with anterior, lateral and posterior spur ring. There is no spondylolisthesis seen however. Moderate lower lumbar facet arthropathy is seen. Th ere is extensive vascular calcification without aneurysm. IMPRESSION: Extensive lumbar spondylosis. No definite acute abnormality. Signer Name: Garrison Duque MD Signed: 04/02/2019 12:54 AM Workstation Name: [id number]
--- NOTE | 2019-04-02 00:59 | XRay Report ---
CHEST 1 VIEW INDICATION / CLINICAL INFORMATION: chest pain. COMPARISON: 10/30/2017 FINDINGS: SUPPORT DEVICES: None. HEART / MEDIASTINUM: No significant abnormality. LUNGS / PLEURA: No significant pulmonary or pleural abnormality. No pneumothorax. ADDITIONAL FINDINGS: Lungs are again seen to be hyperinflated with COPD changes. Healed left-sided ri b fracture is seen. IMPRESSION: 1. No significant change Signer Name: Garrison Duque MD Signed: 04/02/2019 12:55 AM Workstation Name: [id number]
[2019-04-02 06:11] VITALS: BP 121/64
== END 2019-04-02 07:00 | disposition home or self-care (01) ==
LOC: ED 22:25
DX: S00.83XA Contusion of other part of head, initial encounter (principal); F10.10 Alcohol abuse, uncomplicated; R41.82 Altered mental status, unspecified; F20.9 Schizophrenia, unspecified; F17.200 Nicotine dependence, unspecified, uncomplicated; Z79.899 Other long term (current) drug therapy; X58.XXXA Exposure to other specified factors, initial encounter; Y93.89 Activity, other specified; Y92.89 Other specified places as the place of occurrence of the external cause; Y99.8 Other external cause status
CPT/HCPCS: 36415; 70450; 71045; 72100; 72125; 80048; 82962; 85025; 96360; 96361; 99285; J7030; 80320; G0480